=== PATIENT | male | born 1955 | race Caucasian/White ===

== ENCOUNTER 2018-11-12 00:44 | Inpatient (IN) | payer OTHER ==
[2018-11-12 03:08] LABS: ADD MAN DIFF? NO
[2018-11-12 03:09] LABS: BASOPHIL # 0.1 10^3/ul (0.0-0.1); BASOPHILS % 0.8 % (0.0-2.0); EOSINOPHILS # 0.8 10^3/ul (0.0-0.5); EOSINOPHILS % 8.2 % (0.0-7.0); HEMATOCRIT 30.4 % (42.0-52.0); HEMOGLOBIN 9.5 g/dl (14.0-18.0); LYMPHOCYTES # 1.3 10^3/ul (0.8-2.9); LYMPHOCYTES % 13.1 % (15.0-51.0); MEAN CORPUSCULAR HEMOGLOBIN 28.2 pg (29.0-33.0); MEAN CORPUSCULAR HGB CONC 31.3 g/dl (32.0-37.0); MEAN CORPUSCULAR VOLUME 90.2 fl (82.0-101.0); MEAN PLATELET VOLUME 9.3 fl (7.4-10.4); MONOCYTE # 0.6 10^3/ul (0.3-0.9); MONOCYTES % 5.7 % (0.0-11.0); NEUTROPHILS % 71.6 % (39.0-77.0); PLATELET COUNT 334 10^3/UL (140-415); RED BLOOD COUNT 3.37 10^6/ul (4.70-6.10); RED CELL DISTRIBUTION WIDTH 16.5 % (11.5-14.5)
[2018-11-12 03:09] LABS: WHITE BLOOD COUNT 9.8 10^3/ul (4.8-10.8)
[2018-11-12 03:13] LABS: PROTIME 12.3 Sec (11.9-14.9)
[2018-11-12 03:16] LABS: ANION GAP 9 (5-13); BLOOD UREA NITROGEN 37 mg/dl (7-20); CALCIUM 9.7 mg/dl (8.4-10.2); CARBON DIOXIDE 19 mmol/L (21-31); CHLORIDE 113 mmol/L (97-110); CREATININE 2.06 mg/dl (0.61-1.24); D-DIMER 1303.99 ng/ml (<460); Estimated GFR 33 mL/min (>60); GLUCOSE 138 mg/dl (70-220); POTASSIUM 5.5 mmol/L (3.5-5.1); SODIUM 141 mmol/L (135-144)
[2018-11-12 03:28] LABS: AADO2 Arterial 150.4 mmHg (7.0-24.0); Allen Test ACCEPTAB; Arterial Base Excess -6.1 mmol/L (-3.0-3); Arterial COHb 0.1 % (0.0-3.0); Arterial Fraction of Oxyhgb 86.7 % (93.0-99.0); Arterial HCO3 17.2 mmol/L (22.0-26.0); Arterial MetHb 0.3 % (0.0-1.5); Arterial pCO2 27.4 mmhg (35-45); B-TYPE NATRIURETIC PEPTIDE 5190 PG/ML (0-125); MODE NASAL CANNULA; Site Right Radial
[2018-11-12 03:30] LABS: TROPONIN-I 0.468 ng/ml (0.000-0.120)
[2018-11-12] MEDS ORDERED: DEXTROSE 50% 50 ML SYRINGE IV (04:30)
[2018-11-12] MEDS: HEPARIN 1000 UNITS/ML 10 ML INJ IV (04:48)
[2018-11-12] MEDS: FUROSEMIDE 40 MG INJ IV ×3 (04:48→21:14)
[2018-11-12] MEDS: HEPARIN 25000 UNITS/250 ML 250 ML IV (04:51)
[2018-11-12] MEDS: ASPIRIN 81 MG TAB PO (04:51)
[2018-11-12] MEDS: ALBUTEROL 0.5% (NEB) 2.5 MG/0.5 ML AMP INH (04:51)
[2018-11-12] MEDS: DEXTROSE 50% 50 ML SYRINGE IV (04:52)
[2018-11-12] MEDS: INSULIN REGULAR, HUMAN 100 UNIT/1 ML 3ML VIAL IVP (05:01)
[2018-11-12] MEDS ORDERED: NITROGLYCERIN (SL) 0.4 MG TAB SL (07:00)
[2018-11-12] MEDS ORDERED: DOCUSATE SODIUM 100 MG CAP PO (07:00)
[2018-11-12] MEDS ORDERED: NACL 0.9% 3 ML SYG IV (07:00)
[2018-11-12] MEDS ORDERED: ACETAMINOPHEN 325 MG TAB PO (07:00)
[2018-11-12 07:18] LABS: CREATINE KINASE 41 IU/L (23-200)
[2018-11-12 07:31] LABS: CK INDEX 4.4; CK-MB 1.79 ng/ml (0.0-2.4)
[2018-11-12 07:35] LABS: TROPONIN-I 0.411 ng/ml (0.000-0.120)
[2018-11-12] MEDS: FAMOTIDINE 20 MG INJ IV ×2 (09:40→21:13)
[2018-11-12] MEDS: NICOTINE (21 MG/24 HR) PATCH TRANSDERM (09:40)
[2018-11-12] MEDS: ASPIRIN (EC) 325 MG TAB PO ×2 (09:40→11:30)
[2018-11-12] MEDS: ENOXAPARIN 40 MG/0.4 ML SYG SC (09:41)
[2018-11-12] MEDS: SOD CHLORIDE 0.9% 1,000 ML IV (09:41)
[2018-11-12] MEDS: LORAZEPAM 1 MG TAB PO (11:45)
[2018-11-12 11:48] LABS: PROTIME 13.3 Sec (11.9-14.9)
[2018-11-12] MEDS: CLOPIDOGREL 75 MG TAB PO (12:32)
[2018-11-12] MEDS: LOSARTAN 50 MG TAB PO (12:32)
[2018-11-12] MEDS: GABAPENTIN 100 MG CAP PO ×2 (12:33→21:13)
[2018-11-12] MEDS: ESCITALOPRAM 10 MG TAB PO (12:33)
[2018-11-12] MEDS ORDERED: GABAPENTIN 300 MG CAP PO (13:00)
[2018-11-12] MEDS: morphine 2 MG INJ IV (16:33)
[2018-11-12] MEDS: ONDANSETRON 4 MG INJ IV (16:33)
[2018-11-12] MEDS ORDERED: metFORMIN 500 MG TAB PO (18:00)
[2018-11-12 19:06] LABS: CREATINE KINASE 39 IU/L (23-200)
[2018-11-12 19:19] LABS: CK INDEX 3.2; CK-MB 1.23 ng/ml (0.0-2.4)
[2018-11-12 19:23] LABS: TROPONIN-I 0.358 ng/ml (0.000-0.120)
[2018-11-12] MEDS: ATORVASTATIN 40 MG TAB PO (21:13)
[2018-11-12] MEDS: NIFEdipine (XL) 60 MG TAB PO (21:14)
[2018-11-12] MEDS: INSULIN ASPART [NOVOLOG] 3 ML PEN SC (21:48)
[2018-11-13] MEDS: ACCU-CHEK XX (02:39)
[2018-11-13 05:35] LABS: ADD MAN DIFF? NO
[2018-11-13 05:39] LABS: WHITE BLOOD COUNT 7.1 10^3/ul (4.8-10.8)
[2018-11-13 05:39] LABS: BASOPHIL # 0.1 10^3/ul (0.0-0.1); BASOPHILS % 0.7 % (0.0-2.0); EOSINOPHILS # 0.5 10^3/ul (0.0-0.5); EOSINOPHILS % 7.2 % (0.0-7.0); HEMATOCRIT 28.8 % (42.0-52.0); HEMOGLOBIN 9.1 g/dl (14.0-18.0); LYMPHOCYTES # 1.1 10^3/ul (0.8-2.9); LYMPHOCYTES % 15.8 % (15.0-51.0); MEAN CORPUSCULAR HEMOGLOBIN 27.7 pg (29.0-33.0); MEAN CORPUSCULAR HGB CONC 31.6 g/dl (32.0-37.0); MEAN CORPUSCULAR VOLUME 87.5 fl (82.0-101.0); MEAN PLATELET VOLUME 8.6 fl (7.4-10.4); MONOCYTE # 0.5 10^3/ul (0.3-0.9); MONOCYTES % 6.8 % (0.0-11.0); NEUTROPHIL # 4.9 10^3/ul (1.6-7.5); NEUTROPHILS % 68.9 % (39.0-77.0); PLATELET COUNT 283 10^3/UL (140-415); RED BLOOD COUNT 3.29 10^6/ul (4.70-6.10); RED CELL DISTRIBUTION WIDTH 16.1 % (11.5-14.5)
[2018-11-13 05:46] LABS: HEMOGLOBIN A1C 5.8 % (0-5.9)
[2018-11-13 06:01] LABS: ANION GAP 11 (5-13); BLOOD UREA NITROGEN 37 mg/dl (7-20); CALCIUM 9.4 mg/dl (8.4-10.2); CARBON DIOXIDE 21 mmol/L (21-31); CHLORIDE 108 mmol/L (97-110); CHOL/HDL RATIO 5.2 RATIO; CHOLESTEROL 121 mg/dl (100-200); CREATININE 2.18 mg/dl (0.61-1.24); Estimated GFR 31 mL/min (>60); GLUCOSE 117 mg/dl (70-220); HDL CHOLESTEROL 23 mg/dl (30-78); LDL CHOLESTEROL,CALCULATED 75 mg/dl; MAGNESIUM 1.8 mg/dl (1.7-2.5); POTASSIUM 4.9 mmol/L (3.5-5.1); SODIUM 140 mmol/L (135-144); TRIGLYCERIDES 115 mg/dl (0-149)
[2018-11-13] MEDS ORDERED: ALLOPURINOL 300 MG TAB PO (09:00)
[2018-11-13] MEDS: ESCITALOPRAM 10 MG TAB PO (09:16)
[2018-11-13] MEDS: ASPIRIN (EC) 81 MG TAB PO (09:16)
[2018-11-13] MEDS: GABAPENTIN 100 MG CAP PO ×3 (09:17→14:49)
[2018-11-13] MEDS: NICOTINE (21 MG/24 HR) PATCH TRANSDERM (09:17)
[2018-11-13] MEDS: DOCUSATE SODIUM 100 MG CAP PO (09:17)
[2018-11-13] MEDS: CLOPIDOGREL 75 MG TAB PO (09:17)
[2018-11-13] MEDS: ALLOPURINOL 100 MG TAB PO (09:17)
[2018-11-13] MEDS: LOSARTAN 50 MG TAB PO (09:24)
[2018-11-13] MEDS: NIFEdipine (XL) 60 MG TAB PO (09:24)
[2018-11-13] MEDS: FUROSEMIDE 40 MG INJ IV (09:25)
[2018-11-13] MEDS: FAMOTIDINE 20 MG INJ IV (09:25)
[2018-11-13] MEDS: INSULIN ASPART [NOVOLOG] 3 ML PEN SC ×2 (09:58→11:40)
[2018-11-13] MEDS: REGADENOSON 0.4 MG/5 ML SYG (14:15)
[2018-11-13] MEDS: morphine 2 MG INJ IV ×2 (14:49→15:12)
[2018-11-14] MEDS ORDERED: FUROSEMIDE 40 MG INJ IV (09:00)
[2018-11-14] MEDS ORDERED: NIFEdipine (XL) 60 MG TAB PO (09:00)
== END 2018-11-13 17:15 | disposition home or self-care (01) | DRG 291 ==
LOC: 6WM 11-13 00:19 → E/R 00:44 → 6WM 05:04
DX: I13.0 Hypertensive heart and chronic kidney disease with heart failure and stage 1 through stage 4 chronic kidney disease, or unspecified chronic kidney disease (principal); I50.33 Acute on chronic diastolic (congestive) heart failure; N18.3 Chronic kidney disease, stage 3 (moderate); E11.21 Type 2 diabetes mellitus with diabetic nephropathy; Z98.84 Bariatric surgery status; Z95.5 Presence of coronary angioplasty implant and graft; Z72.0 Tobacco use; R07.9 Chest pain, unspecified
CPT/HCPCS: 36415; 36600; 71045; 76775; 78452; 80048; 80061; 82550; 82553; 82803; 82962; 83036; 83735; 83880; 84443; 84484; 85025; 85378; 85610; 85730; 93005; 93017; 93306; 94664; 96374; 96375; 99285-25